=== PATIENT | male | born 1960 | race Caucasian/White ===

== ENCOUNTER 2018-10-10 07:41 | Inpatient (IN) | payer BC ==
[2018-10-10 08:46] LABS: ADD MAN DIFF? NO
[2018-10-10 08:49] LABS: BASOPHIL # 0.1 10^3/ul (0.0-0.1); BASOPHILS % 0.8 % (0.0-2.0); EOSINOPHILS # 0.2 10^3/ul (0.0-0.5); EOSINOPHILS % 2.7 % (0.0-7.0); HEMATOCRIT 47.4 % (42.0-52.0); HEMOGLOBIN 15.5 g/dl (14.0-18.0); LYMPHOCYTES # 3.1 10^3/ul (0.8-2.9); LYMPHOCYTES % 34.3 % (15.0-51.0); MEAN CORPUSCULAR HEMOGLOBIN 29.4 pg (29.0-33.0); MEAN CORPUSCULAR HGB CONC 32.7 g/dl (32.0-37.0); MEAN CORPUSCULAR VOLUME 89.8 fl (82.0-101.0); MEAN PLATELET VOLUME 9.7 fl (7.4-10.4); MONOCYTE # 0.7 10^3/ul (0.3-0.9); MONOCYTES % 7.9 % (0.0-11.0); NEUTROPHIL # 4.9 10^3/ul (1.6-7.5); PLATELET COUNT 259 10^3/UL (140-415); RED BLOOD COUNT 5.28 10^6/ul (4.70-6.10); RED CELL DISTRIBUTION WIDTH 13.6 % (11.5-14.5)
[2018-10-10] MEDS: SOD CHLORIDE 0.9% 1,000 ML IV (08:57)
[2018-10-10 09:06] LABS: ALANINE AMINOTRANSFERASE 31 IU/L (13-69); ALBUMIN/GLOBULIN RATIO 1.37; ALKALINE PHOSPHATASE 67 IU/L (42-121); ANION GAP 6 (5-13); ASPARTATE AMINO TRANSFERASE 33 IU/L (15-46); BILIRUBIN,INDIRECT 0.3 mg/dl (0-1.1); BILIRUBIN,TOTAL 0.3 mg/dl (0.2-1.3); BLOOD UREA NITROGEN 18 mg/dl (7-20); CALCIUM 8.9 mg/dl (8.4-10.2); CARBON DIOXIDE 27 mmol/L (21-31); CHLORIDE 106 mmol/L (97-110); CREATININE 1.09 mg/dl (0.61-1.24); Estimated GFR > 60 mL/min (>60); GLUCOSE 137 mg/dl (70-220); POTASSIUM 4.3 mmol/L (3.5-5.1); SODIUM 139 mmol/L (135-144); TOTAL PROTEIN 6.9 g/dl (6.1-8.1)
[2018-10-10 09:07] LABS: TRIGLYCERIDES 232 mg/dl (0-149)
[2018-10-10 09:09] LABS: INR 0.89; PROTIME 12.2 Sec (11.9-14.9)
[2018-10-10 09:10] LABS: PARTIAL THROMBOPLASTIN TIME 29.6 Sec (23.0-35.0)
[2018-10-10] MEDS ORDERED: VERAPAMIL 5 MG INJ (09:26)
[2018-10-10] MEDS ORDERED: HEPARIN 1000 UNITS/ML 10 ML INJ (09:26)
[2018-10-10] MEDS ORDERED: LIDOCAINE 1% (MDV) 20 ML INJ ×2 (09:26→10:33)
[2018-10-10] MEDS ORDERED: IODIXANOL LOCM 100 ML BTL ×6 (09:26→11:43)
[2018-10-10] MEDS ORDERED: MIDAZOLAM 1 MG/ML 2 ML INJ (09:26)
[2018-10-10] MEDS ORDERED: NITROGLYCERIN (IC) 100 MCG/ML INJ (09:27)
[2018-10-10] MEDS: DIAZEPAM 5 MG TAB PO (09:30)
[2018-10-10] MEDS: FAMOTIDINE 20 MG TAB PO (09:30)
[2018-10-10] MEDS: DIPHENHYDRAMINE 50 MG CAP PO (09:30)
[2018-10-10] MEDS ORDERED: FENTAnyl 50 MCG/ML VIAL (09:40)
[2018-10-10] MEDS ORDERED: DIPHENHYDRAMINE 50 MG INJ (09:41)
[2018-10-10] MEDS ORDERED: BIVALIRUDIN 250MG /NS 50 ML 50 ML IVPB ×2 (11:17→11:29)
[2018-10-10] MEDS ORDERED: CLOPIDOGREL 300 MG TAB (11:50)
[2018-10-10] MEDS ORDERED: ASPIRIN 325 MG TAB (11:50)
[2018-10-10] MEDS ORDERED: IOHEXOL 350MG/ML 50 ML BTL (11:56)
[2018-10-10] MEDS ORDERED: ACETAMINOPHEN 325 MG TAB PO (12:30)
[2018-10-10] MEDS ORDERED: OXYCODONE/ACETAMINOPHEN (5/325) TAB PO (12:30)
[2018-10-10] MEDS ORDERED: ONDANSETRON 4 MG INJ IV (12:30)
[2018-10-10] MEDS ORDERED: AL HYDROX/MG HYDROX/SIMETH 30 ML CUP PO (12:30)
[2018-10-10] MEDS: morphine 2 MG INJ IV ×3 (13:15→20:39)
[2018-10-10] MEDS: SOD CHLORIDE 0.45% 1,000 ML IV (17:30)
[2018-10-10] MEDS: hydrALAzine 20 MG INJ IV (17:46)
[2018-10-10 18:42] LABS: HEMOGLOBIN A1C 7.2 % (0-5.9)
[2018-10-10] MEDS: INSULIN ASPART [NOVOLOG] 3 ML PEN SC (22:30)
[2018-10-10] MEDS ORDERED: GLUCOSE GEL 15 GRAM TUBE BUCCAL (22:30)
[2018-10-10] MEDS ORDERED: GLUCOSE GEL 15 GRAM TUBE PO ×2 (22:30)
[2018-10-10] MEDS ORDERED: GLUCAGON 1 MG INJ IM (22:30)
[2018-10-10] MEDS ORDERED: DEXTROSE 50% 50 ML SYRINGE IV ×2 (22:30)
[2018-10-11] MEDS: INSULIN ASPART [NOVOLOG] 3 ML PEN SC ×4 (07:55→20:46)
[2018-10-11 08:22] LABS: ADD MAN DIFF? NO
[2018-10-11 08:26] LABS: BASOPHIL # 0.1 10^3/ul (0.0-0.1); BASOPHILS % 0.4 % (0.0-2.0); EOSINOPHILS # 0.1 10^3/ul (0.0-0.5); EOSINOPHILS % 0.9 % (0.0-7.0); HEMATOCRIT 46.6 % (42.0-52.0); HEMOGLOBIN 15.1 g/dl (14.0-18.0); LYMPHOCYTES # 2.8 10^3/ul (0.8-2.9); LYMPHOCYTES % 19.8 % (15.0-51.0); MEAN CORPUSCULAR HEMOGLOBIN 29.2 pg (29.0-33.0); MEAN CORPUSCULAR HGB CONC 32.4 g/dl (32.0-37.0); MEAN PLATELET VOLUME 9.8 fl (7.4-10.4); MONOCYTE # 1.2 10^3/ul (0.3-0.9); MONOCYTES % 8.4 % (0.0-11.0); NEUTROPHILS % 70.1 % (39.0-77.0); PLATELET COUNT 256 10^3/UL (140-415); RED BLOOD COUNT 5.18 10^6/ul (4.70-6.10); RED CELL DISTRIBUTION WIDTH 13.6 % (11.5-14.5)
[2018-10-11 08:26] LABS: WHITE BLOOD COUNT 14.3 10^3/ul (4.8-10.8)
[2018-10-11 08:44] LABS: PHOSPHORUS 4.3 mg/dl (2.5-4.9)
[2018-10-11 08:44] LABS: ALANINE AMINOTRANSFERASE 31 IU/L (13-69); ALBUMIN 3.8 g/dl (3.3-4.9); ALBUMIN/GLOBULIN RATIO 1.15; ALKALINE PHOSPHATASE 65 IU/L (42-121); ANION GAP 6 (5-13); ASPARTATE AMINO TRANSFERASE 42 IU/L (15-46); BILIRUBIN,INDIRECT 0.8 mg/dl (0-1.1); BILIRUBIN,TOTAL 0.8 mg/dl (0.2-1.3); BLOOD UREA NITROGEN 14 mg/dl (7-20); CALCIUM 8.7 mg/dl (8.4-10.2); CARBON DIOXIDE 28 mmol/L (21-31); CHLORIDE 103 mmol/L (97-110); CHOL/HDL RATIO 6.3 RATIO; CHOLESTEROL 223 mg/dl (100-200); CREATININE 1.01 mg/dl (0.61-1.24); Estimated GFR > 60 mL/min (>60); GLUCOSE 127 mg/dl (70-220); HDL CHOLESTEROL 35 mg/dl (30-78); LDL CHOLESTEROL,CALCULATED 153 mg/dl; POTASSIUM 4.6 mmol/L (3.5-5.1); SODIUM 137 mmol/L (135-144); TOTAL PROTEIN 7.1 g/dl (6.1-8.1); TRIGLYCERIDES 175 mg/dl (0-149)
[2018-10-11] MEDS: CLOPIDOGREL 75 MG TAB PO (11:48)
[2018-10-11] MEDS: ASPIRIN (EC) 81 MG TAB PO (11:48)
[2018-10-11] MEDS: SOD CHLORIDE 0.9% 1,000 ML IV (11:49)
[2018-10-11] MEDS: SOD CHLORIDE 0.45% 1,000 ML IV (11:49)
[2018-10-11] MEDS ORDERED: DIAZEPAM 5 MG TAB PO (19:30)
[2018-10-11] MEDS ORDERED: DIPHENHYDRAMINE 50 MG CAP PO (19:30)
[2018-10-12 06:52] LABS: ADD MAN DIFF? NO
[2018-10-12 06:53] LABS: BASOPHIL # 0.1 10^3/ul (0.0-0.1); BASOPHILS % 0.6 % (0.0-2.0); EOSINOPHILS # 0.3 10^3/ul (0.0-0.5); EOSINOPHILS % 2.7 % (0.0-7.0); HEMATOCRIT 44.6 % (42.0-52.0); HEMOGLOBIN 14.6 g/dl (14.0-18.0); LYMPHOCYTES % 26.1 % (15.0-51.0); MEAN CORPUSCULAR HEMOGLOBIN 29.3 pg (29.0-33.0); MEAN CORPUSCULAR HGB CONC 32.7 g/dl (32.0-37.0); MEAN CORPUSCULAR VOLUME 89.4 fl (82.0-101.0); MEAN PLATELET VOLUME 9.8 fl (7.4-10.4); MONOCYTE # 1.1 10^3/ul (0.3-0.9); MONOCYTES % 9.1 % (0.0-11.0); NEUTROPHILS % 61.2 % (39.0-77.0); PLATELET COUNT 243 10^3/UL (140-415); RED BLOOD COUNT 4.99 10^6/ul (4.70-6.10); RED CELL DISTRIBUTION WIDTH 13.5 % (11.5-14.5)
[2018-10-12 06:53] LABS: WHITE BLOOD COUNT 11.5 10^3/ul (4.8-10.8)
[2018-10-12 07:13] LABS: ANION GAP 5 (5-13); BLOOD UREA NITROGEN 14 mg/dl (7-20); CALCIUM 8.9 mg/dl (8.4-10.2); CARBON DIOXIDE 29 mmol/L (21-31); CHLORIDE 105 mmol/L (97-110); CREATININE 1.02 mg/dl (0.61-1.24); Estimated GFR > 60 mL/min (>60); GLUCOSE 129 mg/dl (70-220); POTASSIUM 4.1 mmol/L (3.5-5.1); SODIUM 139 mmol/L (135-144)
[2018-10-12 07:14] LABS: PHOSPHORUS 3.7 mg/dl (2.5-4.9)
[2018-10-12] MEDS: INSULIN ASPART [NOVOLOG] 3 ML PEN SC ×4 (07:55→20:59)
[2018-10-12] MEDS: SOD CHLORIDE 0.9% 1,000 ML IV ×2 (08:23→14:53)
[2018-10-12] MEDS: CLOPIDOGREL 75 MG TAB PO (08:26)
[2018-10-12] MEDS: ASPIRIN (EC) 81 MG TAB PO (08:26)
[2018-10-12] MEDS: SOD CHLORIDE 0.45% 1,000 ML IV (08:28)
[2018-10-12] MEDS ORDERED: HEPARIN 1000 UNITS/ML 10 ML INJ (11:15)
[2018-10-12] MEDS ORDERED: LIDOCAINE 1% (MDV) 20 ML INJ (11:15)
[2018-10-12] MEDS ORDERED: IODIXANOL LOCM 100 ML BTL (11:15)
[2018-10-12] MEDS ORDERED: FENTAnyl 50 MCG/ML VIAL (11:15)
[2018-10-12] MEDS ORDERED: MIDAZOLAM 1 MG/ML 2 ML INJ (11:16)
[2018-10-12] MEDS ORDERED: SOD CHLORIDE 0.9% 500 ML (13:18)
[2018-10-12] MEDS ORDERED: ACETAMINOPHEN 325 MG TAB PO (14:00)
[2018-10-12] MEDS ORDERED: OXYCODONE/ACETAMINOPHEN (5/325) TAB PO (14:00)
[2018-10-12] MEDS ORDERED: morphine 2 MG INJ IV (14:00)
[2018-10-12 14:24] LABS: ADD MAN DIFF? NO; BASOPHIL # 0.1 10^3/ul (0.0-0.1); BASOPHILS % 0.6 % (0.0-2.0); EOSINOPHILS # 0.3 10^3/ul (0.0-0.5); EOSINOPHILS % 2.6 % (0.0-7.0); HEMATOCRIT 46.4 % (42.0-52.0); HEMOGLOBIN 15.1 g/dl (14.0-18.0); LYMPHOCYTES # 2.7 10^3/ul (0.8-2.9); LYMPHOCYTES % 22.5 % (15.0-51.0); MEAN CORPUSCULAR HGB CONC 32.5 g/dl (32.0-37.0); MEAN CORPUSCULAR VOLUME 89.2 fl (82.0-101.0); MEAN PLATELET VOLUME 9.9 fl (7.4-10.4); MONOCYTES % 8.4 % (0.0-11.0); NEUTROPHILS % 65.6 % (39.0-77.0); PLATELET COUNT 261 10^3/UL (140-415); RED CELL DISTRIBUTION WIDTH 13.5 % (11.5-14.5)
[2018-10-12 14:24] LABS: WHITE BLOOD COUNT 12.2 10^3/ul (4.8-10.8)
[2018-10-12 14:44] LABS: PROTIME 14.3 Sec (11.9-14.9); PT RATIO 1.1
[2018-10-12 15:43] LABS: PARTIAL THROMBOPLASTIN TIME > 180.0 Sec (23.0-35.0)
[2018-10-12 16:47] LABS: PARTIAL THROMBOPLASTIN TIME 44.4 Sec (23.0-35.0)
[2018-10-12] MEDS: HEPARIN 25000 UNITS/250 ML 250 ML IV (17:04)
[2018-10-12] MEDS ORDERED: HEPARIN 1000 UNITS/ML 10 ML INJ IV (21:00)
[2018-10-13 00:06] LABS: PARTIAL THROMBOPLASTIN TIME 46.8 Sec (23.0-35.0)
[2018-10-13 07:49] LABS: ADD MAN DIFF? NO
[2018-10-13 07:51] LABS: WHITE BLOOD COUNT 10.5 10^3/ul (4.8-10.8)
[2018-10-13 07:51] LABS: BASOPHIL # 0.1 10^3/ul (0.0-0.1); BASOPHILS % 0.6 % (0.0-2.0); EOSINOPHILS # 0.3 10^3/ul (0.0-0.5); EOSINOPHILS % 3.2 % (0.0-7.0); HEMATOCRIT 41.8 % (42.0-52.0); HEMOGLOBIN 13.8 g/dl (14.0-18.0); LYMPHOCYTES # 3.1 10^3/ul (0.8-2.9); LYMPHOCYTES % 29.7 % (15.0-51.0); MEAN CORPUSCULAR HEMOGLOBIN 29.4 pg (29.0-33.0); MEAN CORPUSCULAR VOLUME 88.9 fl (82.0-101.0); MEAN PLATELET VOLUME 10.4 fl (7.4-10.4); MONOCYTES % 9.1 % (0.0-11.0); PLATELET COUNT 240 10^3/UL (140-415); RED CELL DISTRIBUTION WIDTH 13.2 % (11.5-14.5)
[2018-10-13] MEDS: INSULIN ASPART [NOVOLOG] 3 ML PEN SC ×4 (07:55→21:00)
[2018-10-13 08:14] LABS: ANION GAP 4 (5-13); BLOOD UREA NITROGEN 14 mg/dl (7-20); CALCIUM 8.7 mg/dl (8.4-10.2); CARBON DIOXIDE 28 mmol/L (21-31); CHLORIDE 106 mmol/L (97-110); CREATININE 0.93 mg/dl (0.61-1.24); Estimated GFR > 60 mL/min (>60); GLUCOSE 129 mg/dl (70-220); SODIUM 138 mmol/L (135-144)
[2018-10-13 08:15] LABS: MAGNESIUM 2.1 mg/dl (1.7-2.5)
[2018-10-13 08:15] LABS: PHOSPHORUS 3.7 mg/dl (2.5-4.9)
[2018-10-13] MEDS: ASPIRIN (EC) 81 MG TAB PO (08:37)
[2018-10-13] MEDS: CLOPIDOGREL 75 MG TAB PO (08:37)
[2018-10-13 17:27] LABS: PARTIAL THROMBOPLASTIN TIME 49.1 Sec (23.0-35.0)
[2018-10-13] MEDS: HEPARIN 25000 UNITS/250 ML 250 ML IV (18:07)
[2018-10-14 01:11] LABS: PARTIAL THROMBOPLASTIN TIME 55.8 Sec (23.0-35.0)
[2018-10-14] MEDS: HEPARIN 25000 UNITS/250 ML 250 ML IV (01:32)
[2018-10-14] MEDS: ZOLPIDEM 5 MG TAB PO (01:35)
[2018-10-14] MEDS: INSULIN ASPART [NOVOLOG] 3 ML PEN SC (07:42)
[2018-10-14 07:58] LABS: ADD MAN DIFF? NO
[2018-10-14 08:05] LABS: BASOPHIL # 0.1 10^3/ul (0.0-0.1); EOSINOPHILS # 0.4 10^3/ul (0.0-0.5); EOSINOPHILS % 4.2 % (0.0-7.0); HEMATOCRIT 41.6 % (42.0-52.0); HEMOGLOBIN 13.6 g/dl (14.0-18.0); LYMPHOCYTES # 3.1 10^3/ul (0.8-2.9); LYMPHOCYTES % 33.1 % (15.0-51.0); MEAN CORPUSCULAR HEMOGLOBIN 29.2 pg (29.0-33.0); MEAN CORPUSCULAR HGB CONC 32.7 g/dl (32.0-37.0); MEAN CORPUSCULAR VOLUME 89.3 fl (82.0-101.0); MONOCYTE # 0.9 10^3/ul (0.3-0.9); MONOCYTES % 9.3 % (0.0-11.0); NEUTROPHIL # 4.8 10^3/ul (1.6-7.5); PLATELET COUNT 251 10^3/UL (140-415); RED BLOOD COUNT 4.66 10^6/ul (4.70-6.10); RED CELL DISTRIBUTION WIDTH 13.2 % (11.5-14.5)
[2018-10-14 08:05] LABS: WHITE BLOOD COUNT 9.2 10^3/ul (4.8-10.8)
[2018-10-14 08:25] LABS: ANION GAP 7 (5-13); BLOOD UREA NITROGEN 12 mg/dl (7-20); CARBON DIOXIDE 28 mmol/L (21-31); CHLORIDE 105 mmol/L (97-110); CREATININE 1.02 mg/dl (0.61-1.24); Estimated GFR > 60 mL/min (>60); GLUCOSE 139 mg/dl (70-220); POTASSIUM 4.1 mmol/L (3.5-5.1); SODIUM 140 mmol/L (135-144)
[2018-10-14 08:28] LABS: PARTIAL THROMBOPLASTIN TIME 53.9 Sec (23.0-35.0)
[2018-10-14 08:31] LABS: MAGNESIUM 2.1 mg/dl (1.7-2.5)
[2018-10-14 08:31] LABS: PHOSPHORUS 4.4 mg/dl (2.5-4.9)
[2018-10-14] MEDS: CLOPIDOGREL 75 MG TAB PO (08:44)
[2018-10-14] MEDS: ASPIRIN (EC) 81 MG TAB PO (08:44)
== END 2018-10-14 11:31 | disposition home or self-care (01) | DRG 247 ==
LOC: SDS 07:41 → TEL 17:10 → SDS 17:30 → TEL 17:38
PROC: 027034Z Dilation of Coronary Artery, One Artery with Drug-eluting Intraluminal Device, Percutaneous Approach (ICD-10-PCS; principal; 2018-10-10 09:12)
PROC: 047C3ZZ Dilation of Right Common Iliac Artery, Percutaneous Approach (ICD-10-PCS; 2018-10-10 09:12)
PROC: 047H3ZZ Dilation of Right External Iliac Artery, Percutaneous Approach (ICD-10-PCS; 2018-10-10 09:12)
PROC: 047C3DZ Dilation of Right Common Iliac Artery with Intraluminal Device, Percutaneous Approach (ICD-10-PCS; 2018-10-10 09:12)
PROC: 4A023N7 Measurement of Cardiac Sampling and Pressure, Left Heart, Percutaneous Approach (ICD-10-PCS; 2018-10-10 09:12)
PROC: B211YZZ Fluoroscopy of Multiple Coronary Arteries using Other Contrast (ICD-10-PCS; 2018-10-10 09:12)
PROC: B213YZZ Fluoroscopy of Multiple Coronary Artery Bypass Grafts using Other Contrast (ICD-10-PCS; 2018-10-10 09:12)
PROC: B218YZZ Fluoroscopy of Left Internal Mammary Bypass Graft using Other Contrast (ICD-10-PCS; 2018-10-10 09:12)
PROC: 3E063GC Introduction of Other Therapeutic Substance into Central Artery, Percutaneous Approach (ICD-10-PCS; 2018-10-10 09:12)
PROC: B41DYZZ Fluoroscopy of Aorta and Bilateral Lower Extremity Arteries using Other Contrast (ICD-10-PCS; 2018-10-10 09:12)
PROC: B41DYZZ Fluoroscopy of Aorta and Bilateral Lower Extremity Arteries using Other Contrast (ICD-10-PCS; 2018-10-10 09:12)
DX: I25.10 Atherosclerotic heart disease of native coronary artery without angina pectoris (principal); E11.51 Type 2 diabetes mellitus with diabetic peripheral angiopathy without gangrene; I70.201 Unspecified atherosclerosis of native arteries of extremities, right leg; I25.5 Ischemic cardiomyopathy; I10 Essential (primary) hypertension; E78.5 Hyperlipidemia, unspecified; E66.9 Obesity, unspecified; F32.9 Major depressive disorder, single episode, unspecified; F17.210 Nicotine dependence, cigarettes, uncomplicated; R94.39 Abnormal result of other cardiovascular function study; R07.9 Chest pain, unspecified; Z95.1 Presence of aortocoronary bypass graft; Z68.31 Body mass index [BMI] 31.0-31.9, adult
CPT/HCPCS: 37220; 37221; 71045; 75630; 80048; 80053; 80061; 82962; 83036; 83735; 84100; 84478; 85025; 85610; 85730; 93005; 93459; 99217; G0378